=== PATIENT | female | born 1985 | race Caucasian/White ===

== ENCOUNTER 2020-11-16 09:00 | Outpatient (RCR) | payer OTHER, SELFPAY | END 2020-11-24 14:19 | disposition home or self-care (01) | LOC: HO.PT 09:00 | PROVIDERS: Visit Provider Physician Assistant | DX: M24.851 Other specific joint derangements of right hip, not elsewhere classified (principal); M24.852 Other specific joint derangements of left hip, not elsewhere classified | CPT/HCPCS: 97110; 97140; 97161 ==